=== PATIENT | female | born 1940 | race Caucasian/White ===

== ENCOUNTER 2020-01-29 09:38 | Outpatient (CLI) | payer MEDICARE, OTHER, SELFPAY ==
--- NOTE | 2020-01-29 11:00 | NEURO_ITS ---
Patient Number: [id number] Impression: # Complains of numbness and gait dysfunction. 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 # Needle/EMG exam not requested. # Clinical correlation recommended; Patient has generalized neuropathy involving lower extremities, left more than right, motor as well as sensory. Nerve Conduction Studies Anti Sensory Summary Table Stim Site NR Peak (ms) P-T Amp (?V) Site1 Site2 Delta-P (ms) Dist (cm) Matias (m/s) Left Median Anti Sensory (2-3nd Digit) Wrist 3.6 56.0 Wrist 2-3nd Digit 3.6 14.0 39 Wrist 3.5 58.7 Wrist 2-3nd Digit 3.6 14.0 39 Right Median Anti Sensory (2-3nd Digit) Wrist 3.1 59.7 Wrist 2-3nd Digit 3.1 14.0 45 Wrist 3.5 57.8 Wrist 2-3nd Digit 3.1 14.0 45 Left Radial Anti Sensory (Base 1st Digit) Wrist 2.3 22.7 Wrist Base 1st Digit 2.3 0.0 Right Radial Anti Sensory (Base 1st Digit) Wrist 3.0 24.7 Wrist Base 1st Digit 3.0 0.0 Left Sup Fibular Anti Sensory (Ant Lat Mall) NO RESPONSE 14 cm NR 14 cm Ant Lat Mall 16.0 Right Sup Fibular Anti Sensory (Ant Lat Mall) 14 cm 4.1 4.7 14 cm Ant Lat Mall 4.1 16.0 39 Left Sural Anti Sensory (Lat Mall) Calf 4.5 10.3 Calf Lat Mall 4.5 16.0 36 Right Sural Anti Sensory (Lat Mall) Calf 4.1 19.8 Calf Lat Mall 4.1 16.0 39 Left Ulnar Anti Sensory (5th Digit) Wrist 2.9 25.9 Wrist 5th Digit 2.9 14.0 48 Right Ulnar Anti Sensory (5th Digit) Wrist 2.9 68.1 Wrist 5th Digit 2.9 14.0 48 Motor Summary Table Stim Site NR Onset (ms) O-P Amp (mV) Site1 Site2 Delta-0 (ms) Dist (cm) Matias (m/s) Left Median Motor (Abd Poll Brev) Wrist 3.5 6.6 Elbow Wrist 5.3 27.0 51 Elbow 8.8 5.7 Right Median Motor (Abd Poll Brev) Wrist 3.4 4.9 Elbow Wrist 5.3 28.0 53 Elbow 8.7 1.9 Left Peroneal Motor (Vastus Med) NO RESPONSE Ankle NR Popit NR Right Peroneal Motor (Vastus Med) Ankle 6.9 0.6 Popit Ankle 6.2 34.0 55 Popit 13.1 0.6 Left Tibial Motor (Abd Long Brev) Ankle 5.6 2.0 Knee Ankle 8.2 38.0 46 Knee 13.8 2.6 Right Tibial Motor (Abd Long Brev) Ankle 5.2 4.9 Knee Ankle 7.9 39.0 49 Knee 13.1 4.8 Left Ulnar Motor (Abd Dig Minimi) Wrist 3.3 4.3 A Elbow Wrist 5.9 29.0 49 A Elbow 9.2 3.5 Right Ulnar Motor (Abd Dig Minimi) Wrist 3.2 5.0 A Elbow Wrist 6.5 28.0 43 A Elbow 9.7 2.7 B Elbow Wrist 3.6 18.0 50 B Elbow 6.8 2.5 F Wave Studies NR F-Lat (ms) L-R F-Lat (ms) Left Median (Mrkrs) (Abd Poll Brev) 25.92 1.11 Right Median (Mrkrs) (Abd Poll Brev) 24.81 1.11 Left Peroneal (Mrkrs) (EDB) DISPERSED RESPONSE NR Right Peroneal (Mrkrs) (EDB) 54.15 Left Tibial (Mrkrs) (Abd Hallucis) 52.34 1.56 Right Tibial (Mrkrs) (Abd Hallucis) 53.91 1.56 Left Ulnar (Mrkrs) (Abd Dig Min) 27.19 0.35 Right Ulnar (Mrkrs) (Abd Dig Min) 26.84 0.35 MTDD
== END 2020-01-29 09:39 | disposition home or self-care (01) ==
PROVIDERS: PCP Family Medicine Adolescent Medicine; Visit Provider Family Medicine Adolescent Medicine
DX: G56.03 Carpal tunnel syndrome, bilateral upper limbs (principal); G56.23 Lesion of ulnar nerve, bilateral upper limbs
CPT/HCPCS: 95913

== ENCOUNTER → 2020-08-13 09:32 | Outpatient (CLI) | payer MEDICARE, OTHER, SELFPAY ==
--- NOTE | ~2020-08-13 | XR_ITS ---
EXAMINATION: XR ribs LT 2V w CXR 2V INDICATION: Dyspnea on exertion, left posterior chest wall pain TECHNIQUE: PA and lateral views of the chest and 3 views of the left ribs were obtained. COMPARISON: 09/14/2016 FINDINGS: The lungs are free of acute opacities. There is no pleural effusion or pneumothorax. The ca rdiomediastinal silhouette is normal. There is mild thoracic spondylosis. There is subtle cortical ir regularity in the lateral aspect of the left seventh rib. IMPRESSION: 1. Possible nondisplaced left seventh rib fracture. 2. No acute cardiopulmonary abnormality. Reviewed, dictated and finalized at location A.
== END ==
PROVIDERS: PCP Family Medicine Adolescent Medicine; Visit Provider Family Medicine Adolescent Medicine
DX: R07.89 Other chest pain (principal); R06.00 Dyspnea, unspecified; M47.814 Spondylosis without myelopathy or radiculopathy, thoracic region
CPT/HCPCS: 71046; 71100

== ENCOUNTER → 2020-08-21 12:41 | Outpatient (CLI) | payer MEDICARE, OTHER, SELFPAY ==
--- NOTE | ~2020-08-21 | CT_ITS ---
EXAMINATION: CT diagnostic chest w con DATE: 08/21/2020 13:22 INDICATION: Pathologic fracture of the left seventh rib, left back pain TECHNIQUE: Transaxial computed tomographic images of the chest were obtained after the administration of 75 cc of Omnipaque 350 intravenous contrast. The dose-length product (DLP) was 232.23 mGy-cm. Ite rative reconstruction was used. COMPARISON: None FINDINGS: There is mild dependent atelectasis. No focal airspace opacities are identified. A 4 mm nod ule is present in the lingula. An adjacent small cluster of nodules is seen slightly more medially in the lingula. There is no pleural effusion or pneumothorax. No pathologically enlarged thoracic lymph nodes are identified. The heart size is normal. No displaced rib fracture is identified. No osseous metastases are present. Peripelvic cysts are noted in the kidneys. There is moderate thoracic spondyl osis. IMPRESSION: 1. No osseous metastases or pathologic fracture identified. 2. Clustered nodules in the lingula measuring up to 4 mm, likely infectious or inflammatory. Reviewed, dictated and finalized at location A.
[2020-08-21 13:10] LABS: Estimated Glomerular Filt Rate 60
== END ==
PROVIDERS: PCP Family Medicine Adolescent Medicine; Visit Provider Family Medicine Adolescent Medicine
DX: M84.48XA Pathological fracture, other site, initial encounter for fracture (principal); R91.8 Other nonspecific abnormal finding of lung field
CPT/HCPCS: 71260; Q9967

== ENCOUNTER → 2021-04-02 16:01 | Outpatient (CLI) | payer MEDICARE, OTHER, SELFPAY ==
--- NOTE | ~2021-04-02 | XR_ITS ---
EXAMINATION: XR chest 2V DATE: 04/02/2021 16:17 INDICATION: Dyspnea on exertion. TECHNIQUE: Frontal and lateral views of the chest were obtained. COMPARISON: Chest 2 views 08/13/2020, chest CT 08/21/2020 FINDINGS: The chest demonstrates clear lungs without pneumonia, pleural effusion, or pneumothorax. Th e heart size is normal. IMPRESSION: 1. No acute cardiopulmonary disease. Reviewed, dictated and finalized at location A. NE CONSULTANT
== END ==
PROVIDERS: PCP Family Medicine Adolescent Medicine; Visit Provider Family Medicine Adolescent Medicine
DX: R06.09 Other forms of dyspnea (principal)
CPT/HCPCS: 71046

== ENCOUNTER 2022-07-05 17:43 | Emergency (ER) | payer MEDICARE, OTHER, SELFPAY ==
--- NOTE | ~2022-07-05 | XR_ITS ---
EXAMINATION: XR foot RT min 3V DATE: 07/05/2022 18:40 INDICATION: Right foot needle puncture. TECHNIQUE: 4 views of right foot were obtained. COMPARISON: None. FINDINGS: Bone alignment is normal. No fracture. There is mild osteoarthritis of first metatarsophala ngeal joint and some of the interphalangeal joints. There is an enthesophyte at plantar aspect of rich caneal tuberosity. There is a pin in the soft tissues of the heel. IMPRESSION: 1. Pin in the soft tissues of the heel. Reviewed, dictated and finalized at location A. CARDIOGRAPH TECH
[2022-07-05 18:40] VITALS: BP 173/71; PULSE 78; RESP 14; TEMP 36.5; O2SAT 98
--- NOTE | 2022-07-05 20:14 | ED.LOWEXIN ---
HPI - Extremity Injury (Lower) General Chief Complaint: Extremity Injury, Lower Stated Complaint: stepped on a needle, still in foot Time Seen by Provider: 07/05/22 19:56 History of Present Illness HPI Narrative: 81-year-old female presents for a sewing needle with red in her right heel. Patient states she stepped on the needle while wearing a sock just prior to arrival to the ED. Reports she attempted to remove the needle at home without success. Says the needle was a clean sewing needle. Patient denies chest pain, shortness of breath, bleeding, difficulty with range of motion. She believes her last tetanus shot was greater than 10 years ago. She was not wearing shoes when she stepped on the needle. Related Data Home Medications Medication Instructions Recorded Confirmed vitamin B complex 1 tablet PO DAILY 11/03/21 12/15/21 prednisone 1 mg tablet 0.25 mg PO DAILY 12/15/21 12/15/21 Allergies Allergy/AdvReac Type Severity Reaction Status Date / Time atorvastatin AdvReac Unknown Muscle Pain Verified 03/15/22 10:13 Review of Systems Review of Systems: CONSTITUTIONAL: Denies fever, chills EYES: Denies visual changes, redness, or discharge. ENT: Denies rhinorrhea, congestion, sore throat, or otalgia. CARDIOVASCULAR: Denies chest pain, palpitations, or edema. RESPIRATORY: Denies cough or dyspnea. GASTROINTESTINAL: Denies abdominal pain, nausea, vomiting, or diarrhea. GENITOURINARY: Denies dysuria or hematuria. SKIN: Denies rash or itching. MUSCULOSKELETAL: Denies back pain, joint pain, or myalgia. NEUROLOGIC: Denies headache, numbness, dizziness, or weakness. PSYCHIATRIC: Denies anxiety or depression. [facility] Surgical History Surgical History H/O: hysterectomy Family History Family History Sibling Acute myocardial infarction Heart disease Colon polyp Son Asthma Diabetes mellitus Daughter Breast cancer Mother Cerebrovascular accident Depression Father Heart disease Social History Social History Smoking status: Never smoker Second hand tobacco smoke exposure: Yes Alcohol intake: never Substance use: never Substance use type: does not use Living arrangements: with family Occupation/Education: retired Gender identity (if verbalized by the patient): Female Sexual Orientation (if Verbalized by the Patient): Straight or Heterosexual Spiritual care concerns: No Agree to blood products: Yes Exam Narrative: GENERAL: Well-appearing, well-nourished, and in no acute distress. HEAD: Normocephalic, atraumatic. EYES: PERRLA and EOMI. ENT: Nares clear, no rhinorrhea or epistaxis. Mucous membranes moist. Oropharynx without tonsillar hypertrophy exudate or other lesions. NECK: Supple. No adenopathy or masses. CHEST: Clear to auscultation. No respiratory distress. No wheezes rales or rhonchi HEART: Regular rate and rhythm. No murmur heard. Normal peripheral pulses. ABDOMEN: Soft, nontender, nondistended, normal active bowel sounds. EXTREMITIES: Sewing needle with blue thread protruding from patient's right heel. No surrounding erythema, purulence. No active bleeding. After needle removed, there is a very small puncture hole to the right heel. No bleeding. Patient has full range of motion of her right foot. Sensation intact. DP pulses 2+. SKIN: Warm, dry, no rash. NEURO: No focal deficits. Alert and oriented x3. PSYCH: Normal mood and affect. Course Vital Signs Vital signs: Vital Signs Temperature 97.7 F 07/05/22 18:40 Pulse Rate 78 07/05/22 18:40 Respiratory Rate 14 07/05/22 18:40 Blood Pressure 173/71 H 07/05/22 18:40 Pulse Oximetry 98 07/05/22 18:40 Oxygen Delivery Room Air 07/05/22 18:40 Temperature 97.7 F 07/05/22 18:40 Pulse Rate 78 07/05/22 18:40 Respiratory Rate 1
[2022-07-05 20:31] VITALS: PULSE 68; RESP 16; O2SAT 100
[2022-07-05] MEDS: TETANUS,DIPHTHERIA,AC PERTUSSIS ADULT (0.5 ML) BOOSTRIX IM (20:31)
[2022-07-05 20:36] VITALS: BP 162/72
== END 2022-07-05 20:40 | disposition home or self-care (01) ==
PROVIDERS: Emergency Provider Physician Assistant; PCP Family Medicine Adolescent Medicine
DX: S91.341A Puncture wound with foreign body, right foot, initial encounter (principal); Z23 Encounter for immunization; Z90.710 Acquired absence of both cervix and uterus; W27.3XXA Contact with needle (sewing), initial encounter
CPT/HCPCS: 73630; 90471; 90715; 99283

== ENCOUNTER → 2022-08-23 08:35 | Outpatient (CLI) | payer MEDICARE, OTHER, SELFPAY ==
--- NOTE | ~2022-08-23 | MR_ITS ---
EXAMINATION: MR brain IAC wo con DATE: 08/23/2022 09:24 INDICATION: Headache and dizziness. TECHNIQUE: Magnetic resonance imaging (MRI) of the brain, brainstem, and internal auditory canals was performed without intravenous contrast. COMPARISON: None. FINDINGS: There are scattered areas of nonspecific increased T2-weighted signal intensity in the cere bral white matter, which is within normal limits for the patient's age. There is no intracranial hemo rrhage, acute infarction, or abnormal intracranial mass lesion. The ventricles are normal in size. Th e mastoid air cells are normal. There are likely changes of ocular lens replacement surgeries. The pa ranasal sinuses are clear. IMPRESSION: 1. Normal aging brain. Reviewed, dictated and finalized at location A. IMPRESSION: 1. Normal aging brain.
== END ==
PROVIDERS: PCP Family Medicine Adolescent Medicine; Visit Provider Family Medicine Adolescent Medicine
DX: R42 Dizziness and giddiness (principal); R51.9 Headache, unspecified; H91.8X9 Other specified hearing loss, unspecified ear
CPT/HCPCS: 70551

== ENCOUNTER → 2023-04-18 11:39 | Outpatient (CLI) | payer MEDICARE, OTHER, SELFPAY ==
--- NOTE | ~2023-04-18 | XR_ITS ---
EXAMINATION: XR chest 2V 04/18/2023 11:57 INDICATION: Dyspnea with exertion PROCEDURE: 2 view chest COMPARISON: 04/02/2021 FINDINGS: The lungs are clear. The cardiomediastinal silhouette is within normal limits. There are no pleural effusions. There is no pneumothorax suspected. IMPRESSION: 1: NO ACUTE CARDIOPULMONARY DISEASE. Reviewed, dictated and finalized at location B. T WORKER
== END ==
PROVIDERS: PCP Family Medicine Adolescent Medicine; Visit Provider Family Medicine Adolescent Medicine
DX: R06.09 Other forms of dyspnea (principal)
CPT/HCPCS: 71046

== ENCOUNTER 2023-08-25 10:35 | Outpatient (CLI) | payer MEDICARE, OTHER, SELFPAY ==
--- NOTE | ~2023-08-25 | MR_ITS ---
EXAMINATION: MR shoulder RT wo con DATE: 08/25/2023 11:13 INDICATION: Right shoulder pain with elevation TECHNIQUE: Magnetic resonance imaging (MRI) of the right shoulder was performed without intravenous c ontrast. Sequences included axial PD-weighted FS FSE, coronal oblique PD-weighted FS FSE, coronal obl ique T2-weighted FS FSE, sagittal PD-weighted FS FSE, and sagittal T1-weighted SE. COMPARISON: None. FINDINGS: Coracoacromial arch: The acromion undersurface is curved in morphology (type II) with anterior downsloping and small anter ior subacromial spur. The coracoacromial ligament is normal. Moderate acromioclavicular osteoarthriti s. Rotator cuff: Moderate supraspinatus and mild infraspinatus tendinopathy without discrete tear. Mild tendinopathy w ithout discrete tear at the cephalad aspect of the distal subscapularis tendon. The teres minor tendo n is normal. There is mild fatty atrophy of the supraspinatus muscle belly. Biceps tendon, glenoid labrum and glenohumeral cartilage: Long head of the biceps tendon is normal. There is severe glenohumeral osteoarthritis with extensive full/near full-thickness cartilage loss involving the majority of the glenoid as well as large region of the medial aspect of the humeral head. There is associated mild cortical irregularity with underl baldomero mild edema-like signal change at both sides of the joint space. There appears to been some remod eling along the anteroinferior glenoid. Fluid: Physiologic amount of fluid in the glenohumeral joint and biceps tendon sheath. There is extensive fl uid intensity deep subscapular bursa which extends the cephalad 3 defect in the coracohumeral ligamen t. No loose osteochondral bodies. No abnormal increased fluid signal in the subacromial/subdeltoid bu rsa to suggest bursitis. Bones: Bone alignment is normal. No fracture or pathologic marrow replacing process. IMPRESSION: 1. Severe right glenohumeral osteoarthritis with diffuse degenerative tearing of the glenoid labrum. 2. Moderate supraspinatus and mild infraspinatus and subscapularis tendinopathy without discrete tear . 3. Moderate acromioclavicular osteoarthritis. Reviewed, dictated and finalized at location B. IMPRESSION: 1. Severe right glenohumeral osteoarthritis with diffuse degenerative tearing o f the glenoid labrum. 2. Moderate supraspinatus and mild infraspinatus and subscapularis tendinopathy without discrete tear. 3. Moderate acromioclavicular osteoarthritis.
== END 2023-08-25 10:36 ==
LOC: MICIMG 10:37
PROVIDERS: PCP Family Medicine Adolescent Medicine; Visit Provider Family Medicine Adolescent Medicine
DX: M19.011 Primary osteoarthritis, right shoulder (principal)
CPT/HCPCS: 73221

== ENCOUNTER 2024-03-15 09:23 | Outpatient (CLI) | payer MEDICARE, OTHER, SELFPAY ==
--- NOTE | 2024-03-15 09:44 | ECHO_ITS ---
Patient Info Name: Marika Ronquillo Age: 83 years : 1940 Gender: Female Ht: 62 in Wt: 115 lbs BSA: 1.51 m2 HR: 70 bpm Technical Quality: Good Exam Date: 03/15/2024 9:57 AM Exam Location: Echo Lab Patient Status: Outpatient Admit Date: 03/15/2024 Staff Ordering Physician: Joon Guo MD Coal Deliverer: Latricia Fragoso RDCS Attending Provider: Joon Guo MD Referring Physician: Brant GUO; Exam Type: CA echo doppler color flow Study Info Indications - dyspnea Complete two-dimensional, color flow and Doppler transthoracic echocardiogram is performed. Summary 1. Complete two-dimensional, color flow and Doppler transthoracic echocardiogram is performed. 2. Left ventricular chamber dimension is normal. 3. Left ventricular systolic function is normal, estimated at 60-65%. 4. The left ventricular diastolic function is grade I diastolic dysfunction. 5. E/e' 7 is not elevated. 6. There is mild aortic valve sclerosis. 7. There is mild to moderate aortic valve regurgitation. 8. There is trace mitral valve regurgitation. 9. There is mild tricuspid valve regurgitation. 10. No pulmonary hypertension, estimated pulmonary arterial systolic pressure is 28 mmHg. Left Ventricle E/e' 7 is not elevated. Left ventricular chamber dimension is normal. Left ventricular systolic function is normal, estimated at 60-65%. The left ventricular diastolic function is grade I diastolic dysfunction. Right Ventricle Right ventricular systolic function is normal and with normal TAPSE 2.1 cm. Right ventricular chamber dimension is normal. Left Atria Left atrial chamber dimension is normal. Right Atria Right atrial chamber dimension is normal. Aortic Valve The aortic valve is trileaflet. There is mild aortic valve sclerosis. There is no aortic valve stenosis. There is mild to moderate aortic valve regurgitation. Pulmonic Valve There is no pulmonic regurgitation. Mitral Valve There is no mitral valve stenosis. There is trace mitral valve regurgitation. Tricuspid Valve There is mild tricuspid valve regurgitation. No pulmonary hypertension, estimated pulmonary arterial systolic pressure is 28 mmHg. Pericardium/Pleural There is no pericardial effusion. Inferior Vena Cava Normal inferior vena cava with >50% collapse upon inspiration consistent with normal right atrial pressure, 5 mmHg. Aorta The aortic root size at the sinus of Valsalva is normal. Left Ventricular Outflow Tract Name Value Normal LVOT 2D LVOT Diameter 1.8 cm LVOT Doppler LVOT Peak Gradient 6 mmHg LVOT Mean Gradient 3 mmHg LVOT VTI 23 cm LVOT VTI/AV VTI Ratio 0.7 LVOT Stroke Volume 60 ml LVOT CO 4.6 l/min LVOT CI 3.0 l/min/m2 Mitral Valve Name Value Normal MV Doppler MV Decel Avery 317 cm/s2 MV PHT 51 ms MV Area (PHT) 4.3 cm2 4.0-5.0 MV Regurgitation Doppler MR Peak Gradient 39 mmHg MV Diastolic Function MV E Peak Velocity 56 cm/s MV A Peak Velocity 94 cm/s MV E/A 0.6 MV Decel Time 175 ms MV Annular TDI MV E/e' (Septal) 8.2 <=8.0 MV E/e' (Lateral) 6.3 <=8.0 MV E/e' (Average) 7.3 Tricuspid Valve Name Value Normal TV Regurgitation Doppler TR Peak Velocity 238 cm/s TR Peak Gradient 18 mmHg Estimated PAP/RSVP RA Pressure 5 mmHg <=5 PA Systolic Pressure 28 mmHg <36 RV Systolic Pressure 28 mmHg <36 Aortic Valve Name Value Normal AV Doppler AV Peak Velocity 139 cm/s AV Peak Gradient 8 mmHg AV Mean Gradient 5 mmHg AV VTI 32 cm AV Area (Cont Eq VTI) 1.9 cm2 >=3.0 AV Area (Cont Eq Matias) 2.2 cm2 AV Regurgitation 2D LVOT Area 2.6 cm2 AV Regurgitation Doppler AR Decel Time 1,496 ms AR Decel Avery 307 cm/s2 AR PHT 434 ms Ventricles Name Value Normal LV Dimensions 2D/MM IVS Diastolic Thickness (2D) 0.9 cm 0.6-1.0 LVID Diastole (2D) 4.1 cm 3.8-5.2 LVIW Diastolic Thickness (2D) 0.9 cm 0.6-0.9 LVID Systole (2D) 2.7 cm 2.2-3.5 LVOT Diameter 1.8 cm LV Mass (2D Cubed) 119.87 g 67.00-162.00 LV Mass Index (2D Cubed) 79 g/m2 43-95 Relative Wall Thickness (2D) 0.46 LV Fractional Shortening/Ejection Fraction 2D/MM LV Fractional Shortening (2D) 34 % 27-45 LV EF (2D Teicholz) 63 % 54-74 LV Diastolic Volume (4C MOD) 56 ml LV EF (4C MOD) 61 % LV Diastolic Volume (2C MOD) 55 ml LV EF (2C MOD) 63 % LV Diastolic Volume (BP MOD) 57 ml 46-106 LV Diastolic Volume Index (BP MOD) 38 ml/m2 29-61 LV Systolic Volume (BP MOD) 21 ml 14-42 LV Systolic Volume Index (BP MOD) 14 ml/m2 8-24 LV EF (BP MOD) 62 % 54-74 LV Diastolic Length (4C) 6.8 cm LV Systolic Length (4C) 5.1 cm LV Stroke Volume (4C MOD) 34 ml Atria Name Value Normal LA Dimensions LA Volume (4C A-L) 20 ml LA Volume (BP A-L) 20 ml RA Dimensions RA Area (4C) 6.5 cm2 <=18.0 Report Signatures
== END 2024-03-15 09:24 | disposition home or self-care (01) ==
LOC: ANHCARD 09:24
PROVIDERS: PCP Family Medicine Adolescent Medicine; Visit Provider Family Medicine Adolescent Medicine
DX: I36.1 Nonrheumatic tricuspid (valve) insufficiency (principal); I34.0 Nonrheumatic mitral (valve) insufficiency; I35.1 Nonrheumatic aortic (valve) insufficiency
CPT/HCPCS: 93306

== ENCOUNTER 2024-08-18 09:54 | Emergency (ER) | payer MEDICARE, OTHER, SELFPAY ==
--- NOTE | ~2024-08-18 | CT_ITS ---
EXAMINATION: CT abdomen pelvis w con DATE: 08/18/2024 11:21 INDICATION: Abdominal pain TECHNIQUE: Computed tomography (CT) of the abdomen and pelvis was performed with 100 mL Omnipaque-350 intravenous contrast. Automated exposure control and iterative reconstruction technique were employe d. The dose-length product was 207.44 mGy-cm. COMPARISON: 08/06/2018 FINDINGS: Mild dependent atelectasis in bilateral lower lobes. Heart size is normal. Atherosclerotic coronary a rtery calcification. No pericardial or pleural effusion. Small sliding-type hiatal hernia. Phrygian c ap versus focal adenomyomatosis at the tip of the fundus of the otherwise normal gallbladder. Liver, spleen, pancreas and bilateral adrenal glands are normal. Multiple bilateral renal parapelvic cysts a t a few additional proximal cysts the largest on the left measuring 1.7 cm. There are a few scattered diverticula along the descending and sigmoid colon without adjacent inflammatory stranding to sugges t diverticulitis. Small bowel and appendix are normal. Bladder is normal. The uterus is not identifie d and has likely been surgically resected. Mild lumbar levocurvature with severe lumbar and lower tho racic spondylosis. IMPRESSION: 1. No acute intra-abdominal/pelvic process. 2. Small sliding-type hiatal hernia. Reviewed, dictated and finalized at location A.
--- OUTSIDE RECORDS SUMMARY | 2024-08-18 09:56 | XMS_ITS | Data Portability ---
Author Organization [place] [facility] [employer], Main Office Address [address] [place] [address] Care Team Providers Care Java Flex Developer Name Role Phone EVIE JEFFERSON Primary Care Provider EVIE JEFFERSON Referring Provider [phone] Assessment Encounter Date Assessment Date Assessment LastModified by Organization Details LastModified Time 09/10/2022 09/10/2022 The patient has left knee pain due to primary osteoarthritis. We talked about treatment options today in detail she wanted proceed with cortisone therefore under sterile conditions I injected the patient's left knee joint in the office today with 4 cc of 0.5% ropivacaine and 20 mg of Kenalog. Patient tolerated procedure well. I will see her back as needed she voiced understanding agrees above plan she will call for any further problems difficulties or questions. She will continue with her exercise regimen with low-impact exercise and other conservative measures including pnri-mwi-lmioouu anti-inflammator ies and ice as needed. [email or web address] Not available 09/10/2022 14:12:23 12/30/2022 12/30/2022 Patient returns trochanteric pain right. She is tender to palpation has pain to manipulation. She has good motion of her hip but quite tender laterally strength is good reflexes symmetric. She walks with an antalgic gait. I recommended injection proceed with 20 mg Kenalog 4 cc 1% lidocaine. For prescription drug management will try prednisone taper for pain and inflammation. I will see her back in a month for follow-up discussed. [email or web address] Not available 12/30/2022 11:56:16 Plan of Treatment Reminders Order Date Submit Date Provider Last Modified By Organization Details Last Modified Time Details Appointments None recorded. Lab None recorded. Referral None recorded. Procedures injection/a spiration joint/bursa (PROC) - in office procedure, administere d by provider 2022 023 [email or web address] In-Office Order, Internal Use Only DO Not Attach Compendium DO Not Attach Compendium, Do Not Delete/merge, [id number] 11:29:51 injection/a spiration joint/bursa (PROC) - in office procedure, administere d by provider 2022 023 [email or web address] In-Office Order, Internal Use Only DO Not Attach Compendium DO Not Attach Compendium, Do Not Delete/merge, [id number] 3 14:03:08 Surgeries None recorded. Imaging XR, hip + pelvis, unilateral 2022 023 [email or web address] [facility] [place], [address] [facility] [address], [place], [address], 3 13:21:20 Medication Orders Kenalog 10 mg/mL suspension for injection [email or web address] [facility] [address] [facility], [address], [place], [address], 3 11:47:24 ropivacaine (PF) 5 mg/mL (0.5 %) injection solution [address] [facility], [address], [place], [address], 3 11:47:24 prednisone 10 mg tablets in a dose pack [address] [facility], [address], [place], [address], 3 11:47:24 Kenalog 10 mg/mL suspension for injection 2022 023 [email or web address] [facility] [place] [facility], [address], [place], [address], 3 14:04:48 ropivacaine (PF) 5 mg/mL (0.5 %) injection solution 2022 023 [email or web address] [facility], [address], [place], [address], 14:04:48 Patient TargetsNo targets recorded. Patient InstructionsNo instructions recorded. Reason for Referral None Reported. Results Created Date Observation Date Name Description Value Unit Range Abnormal Flag Note LastModifiedBy Organization Detail LastModifiedTime 05/05/20 21 XR, knee, 3 view No observ ation record ed. [id number] [facility] [place] [address], [place], [address], 07/14/2022 19:29:14 06/24/19 23 XR, knee, 3 view No observ ation record ed. [id number] [facility] [place] [address], [place], [address], 07/14/2022 19:29:14 12/31/19 23 XR, hip + pelvi s, unila teral No observ ation record ed. [email or web address] [facility] [place] [address], [place], [address], 12/30/2022 11:57:42 Result Notes None recorded. Problems Name Problem SNOMED Code Status Onset Date Resolution Date Notes Provider Name and Address Organization Details Recorded Time Disorder of shoulder 717269069 Active Not Available [facility] 3 19:28:33 Localized, primary osteoarthr itis of the shoulder region 594665790 Active Not Available [facility] 3 19:28:33 Tear of medial meniscus of knee 143663991 Active 2020 Not Available [facility] 3 19:28:33 Osteoarthr itis of left knee joint 9913469721442 09 Active 2022 Not Available [facility] 3 19:28:33 Pain of left knee joint 6416147111210 07 Active 2022 RORY Fajardo, [facility] 3 14:01:50 Pain in right hip joint 4887956084739 02 Active 2022 Karishma Buenrostro tommie, [facility] 3 10:41:03 Trochanter ic bursitis of right hip 2344996550143 00 Active 2022 Elijah Lopes MD [address] [facility], [facility] [address], [place], [address] , [facility] 3 11:56:24 Problem Notes None recorded. Procedures Surgical History Date Name Laterality Status Provider Name and Address Organization Details Recorded Time Ortho - Cortisone Injection completed Elijah Lopes MD [address], [facility] [address], [place], [address], [facility] 12/30/2022 11:55:38 Imaging Results Imaging Date Name Status LastModified by Organiz [facility] Details LastModified Time 06/24/2022 XR, knee, 3 view completed [id number] [facility] [place] [address], [place], [address], 07/14/2022 19:29:14 05/05/2021 XR, knee, 3 view completed [id number] [facility] [place] [address], [place], [address], 07/14/2022 19:29:14 12/30/2022 XR, hip + pelvis, unilateral completed [email or web address] [facility] [place] [address], [address], 12/30/2022 11:57:42 Procedure Notes None recorded. Medical Equipment None Reported. Medications Name Sig Start Date Stop Date Status Note LastModified by Organization Details LastModified Time furosemide 40 mg tablet TAKE 1 TABLET BY MOUTH ONCE DAILY IN THE MORNING active Not Available Not Available No t Available prednisone 10 mg tablet TAKE 1 TABLET BY MOUTH THREE TIMES DAILY FOR 3 DAYS THEN 1 TWICE DAILY FOR 2 DAYS THEN 1 ONCE DAILY FOR 1 DAY active Not Available Not Available No t Available doxycycline hyclate 100 mg capsule TAKE 1 CAPSULE BY MOUTH TWICE DAILY 06/24 completed Not Available Not Available Not Available bupivacaine HCl 0.5 % (5 mg/mL) injection solution Take 40 mL by injection route. active Not Available Not Available No t Available penicillin V potassium 500 mg tablet TAKE 1 TABLET BY MOUTH EVERY 6 HOURS UNTIL GONE 06/24 completed Not Available Not Available Not Available tramadol 50 mg tablet TAKE 1 TABLET BY MOUTH EVERY 6 HOURS NEEDED active Not Available Not Available No t Available prednisone 10 mg tablets in a dose pack Take 1 tab by mouth, 3 times a day for 3 daysTake 1 tab by mouth 2 times a day for 2 daysTake 1 tab by mouth once a day for 1 day 2022 active Not Available Not Available Not Avai lable Kenalog 10 mg/mL suspension for injection Take 20 mg by injection route. [address] [facility]: [phone] Not Available Not Available Not Available meclizine 25 mg tablet 05/05 completed Not Available Not Available Not Available cephalexin 500 mg capsule TAKE 1 CAPSULE BY MOUTH EVERY 8 HOURS active Not Available Not Available No t Available gabapentin 300 mg capsule TAKE 2 CAPSULES BY MOUTH IN THE MORNING AND 1 CAPSULE AT NOON AND 2 CAPSULRES IN THE EVENING active Not Available Not Available No t Available omeprazole 20 mg capsule,del ayed release TAKE 1 CAPSULE BY MOUTH ONCE DAILY active Not Available Not Available No t Available furosemide 20 mg tablet 05/05 completed Not Available Not Available Not Available lorazepam 1 mg tablet TAKE 2 TABLETS BY MOUTH ONCE 1 HOUR BEFORE MRI active Not Available Not Available No t Available levofloxaci n 500 mg tablet 06/24 completed Not Available Not Available Not Available amoxicillin 875 mg-potassiu m clavulanate 125 mg tablet TAKE 1 TABLET BY MOUTH EVERY 12 HOURS FOR 10 DAYS 06/24 completed Not Available Not Available Not Available ezetimibe 10 mg tablet TAKE 1 TABLET BY MOUTH ONCE DAILY active Not Available Not Available No t Available ropivacaine (PF) 5 mg/mL (0.5 %) injection solution Take 20 mg by injection route. [address] [facility] [phone] -[phone] Not Available Not Available Not Available BinaxNOW COVID-19 Ag Self Test kit Use as Directed on the Package 06/24 completed Not Available Not Available Not Available Vitals Date Recorded Body mass index (BMI) Body height Pain severity - 0-10 verbal numeric rating [Score] - Reported Body weight Provider Name and Address Organization Details Last Updated DateTime 05/05/2021 22.5 kg/m2 157.48 cm 4 08802.86 g Not Available [facility] 07/14/2022 19:28:29 Date Recorded Body mass index (BMI) Body height Body weight Provider Name and Address Organization Details Last Updated DateTime 06/24/2022 21.9 kg/m2 157.48 cm 51759.08 g Not Available [facility] 07/14/2022 19:28:29 Date Recorded Body height Body mass index (BMI) Body weight Provider Name and Address Organization Details Last Updated DateTime 09/10/2022 157.48 cm 22.3 kg/m2 57539.27 g Savi Brooke [facility] 09/10/2022 14:01:23 Date Recorded Body height Body mass index (BMI) Body weight Provider Name and Address Organization Details Last Updated DateTime 12/30/2022 154.94 cm 22.3 kg/m2 66641.9 g Karishma Buenrostro [facility] 12/30/2022 10:40:39 Social History Question Answer Notes LastModified by Organizat ion Details LastModified Time Tobacco Smoking Status Never Smoker Not Available [facility] 07/14/2022 19:27:55 What Is Your Level Of Alcohol Consumption? None [id number] Information not available 07/14/2022 What Was The Date Of Your Most Recent Tobacco Screening? 05/05/2021 [id number] 26 Information not available 07/14/2022 Sex: Unknown Functional Status None recorded. Mental Status None recorded. Family History Relationship Description Onset Age of this Age Resolved Age Notes LastModified by Organization Details LastModified Time Father Heart disease [id number] Not available 07/14/2022 19:27:58 Brother Heart disease [id number].009 [id number] Not available 07/14/2022 19:27:58 Son Diabetes mellitus [id number] Not available 07/14/2022 19:27:58 Medical History Condition Response ARTHRITIS Y Gynecological HistoryNo gynecological history recorded. Obstetrics History GPAL:G 0 P 0 0 0 0 Past Encounters Encounter ID Performer Location Encounter Start Date Encounter Closed Date Diagnosis/Indication Diagnosis SNOMED-CT Code Diagnosis ICD10 Code Diagnosis Note [id number] [facility] [place] [address] [place] [address] 05/05/2021 00:00:00 05/06/2021 07:52:15 [id number] [facility] [place] [address] [place] [address] 06/24/2022 00:00:00 06/24/2022 13:15:30 [id number] ABILIO Acuña [facility] [place] [address] [place] [address] 09/10/2022 13:54:39 09/10/2022 14:12:58 Osteoarthritis of left knee joint 3195808183 12903 M17.12 Pain of le ft knee joint 0942885769 69901 M25.562 [id number] Elijah Lopes MD [facility] [place] [address] [place] [address] 12/30/2022 10:38:13 12/30/2022 13:21:19 Pain in right hip joint 9274018091 63879 M25.551 Trochanter ic bursitis of right hip 0023505588 07503 M70.61 Health Concerns Section Related Observation LastModified by Organization Detai ls LastModified Time None Recorded Concern Status LastModified by Organization Details LastModified Time None Recorded Advance Directives Directive None Recorded Payers Encounter Date Sequence Insurance Name Policy Number Policy Soares Covered Member ID Soares Member ID Guarantor Name 09/10/2022 1 [place] Marika Ronquillo [id number] Marika Ronquillo 09/10/2022 2 [employer] (MEDICARE SUPPLEMENT) Marika Ronquillo [id number] Marika Ronquillo 12/30/2022 1 [place] Marika Phillipswski [id number] Marika Shima 12/30/2022 2 [employer] (MEDICARE SUPPLEMENT) Marika Payan Shima [id number] Marika Shima Notes Date Note Type Note Provider Name and Address Organization Details Recorded Time 05/05/2021 text/html KneeReported bypatient.Location:le ft; medial Quality:aching; throbbing; sharp; deep; occasional Severity:moderate Duration:continuous since onset Timing:acute; abrupt Context:cannot identify Alleviating Factors:sitting; lying down; rest; elevation; exercise; stretching Aggravating Factors:walking; lifting; carrying; twisting; bending/squatting Associated Symptoms:no weakness; no numbness; no tingling; no redness; no ecchymosis; no catching/locking; no instability; no radiation down leg; no drainage; no fever; no chills; no weight loss; no change in bowel/bladder habits;swelling;warmt h;popping/clicking;bu ckling;grinding Not Available [facility] 05/06/2021 07:52:15 09/10/2022 text/html Patient returns complaining left knee pain she has been seen for this previously she was last here about 3 months ago she did very well with previous cortisone injection last time she was here for was a recheck from a previous cortisone injection that gave her good relief for 6-9 months. She states recently her left knee has started to flare up again she has been active trying to exercise with an exercise bike etc.. She states that lately her left knee has been a little bit puffy and aching denies any new trauma or injury no erythema heat no significant effusion no signs of infection. She comes in today requesting repeat cortisone injection left knee. Previous x-rays show mild to moderate primary osteoarthritis tricompartmental in nature. ABILIO Acuña [address] [place] [address], [facility] [address], [place], [address], [facility] 09/10/2022 14:12:34 12/30/2022 text/html Patient presents hip pain right. She is tender over the right hip over the trochanteric region. She had an injury to it since that time has had pain. She she walks with an antalgic gait and limps. Elijah Lopes MD [address] [place] [address], [place], [address], [place] [facility] 12/30/2022 11:57:53 OBGyn Episode No OBEpisode recorded.
--- OUTSIDE RECORDS SUMMARY | 2024-08-18 09:56 | XMS_ITS | Continuity of Care Document ---
Author Organization [facility] Address [address] [place] [address] Phone Care Team Providers Care Generator Switchboard Operator Name Role Phone Collin Holden Unavailable Unavailable Procedures Procedure Date Post-op Follow-up Visit Refraction Post-op Follow-up Visit Remove Cataract, Insert Lens PreOp Assessment Performed Post-op Follow-up Visit [facility]Professional Post-op Follow-up Visit Remove Cataract, Insert Lens PreOp Assessment Performed Eye Exam & Treatment [facility] Office/outpatient Visit, Est No Script Office/outpatient Visit, New Script Printed/Phoned Pt Requ Or Pharm N ot Availab Advance Directives Directive Yes / No Effective Date File Name No Information Encounters Encounter Description Practice Location Reason(s) For Visit Diagnoses Date Provider Providers Copied on Encounter [facility], [address] [place] [address] [address], [place], [place], [id number], [place] tel:[phone] [facility] No Information 0 Adina Polanco. [address] , [address], [place], [address], [place]. tel:[phone] [facility], [address], [place], [place], [id number], [place] tel:[phone] [facility] No Information Apr-2 8-201 0 Adina Polanco. [address] [facility] , [address], [place], [place], [facility], [place]. tel:[phone] [facility], [address], [place], [place], [id number], [place] tel:[phone] [facility] No Information Aug-2 7-201 0 Adina Polanco. [address] [facility] , [address], [place], [place], [facility], [place]. tel:[phone] [facility], [address], [place], [place], [id number], [place] tel:[phone] [facility] No Information Aug-1 9-201 0 Adina Polanco. [address] [facility] , [address], [place], [place], [facility], [place]. tel:[phone] Referring Provider: Collin Payan, [address] [place], [place] [address], [place], [place], [facility]. tel:[phone] [facility], [address], [place], [place], [address], [place] tel:[phone] [facility] No Information Mar-3 1-201 0 Adina Polanco. [facility] , [address], [place], [place], [facility], [place]. tel:[phone] [facility], [address], [place], [place], [address], [place] tel:[phone] [facility] No Information Mar-3 0-201 0 Adina Polanco. [facility] , [address], [place], [facility], [place]. tel:[phone] [facility], [address], [place], [place], [id number], [place] tel:[phone] [facility] No Information 2-201 0 Adina Polanco. [address] [facility] , [address], [place], [address], [place]. tel:[phone] Referring Provider: Collin Payan, [address] [facility] [address], [place], [facility]. tel:[phone] [place]pat [place] Visit, [facility] [place] [address], [place], [place], [id number], [place] tel:[phone] [facility] No Information 4-200 9 Adina Polanco. [address] [facility] [address], [address], [place], [facility], [place]. tel:[phone] Office/outpat ient Visit, [facility], [address], [place], [place], [address], [place] tel:[phone] [facility] No Information 0-200 9 Adina Polanco. [facility] [address], [address], [place], [facility], [place]. tel:[phone] Family History Family Member Type Diagnosis Age At Onset No Information Payers Payer name Insurance type Covered republican ID Authoriza tishadi(s) [place] [id number] [facility] [id number] Social History Type Description Quantity Date Captured Comments Sex Female Smoking Status No Information Chief Complaint And Reason For Visit No Information Reason For Referral Reason For Referral No Information History Of Present Illness Encounter Date Complaint History Of Prese nt Illness No Information Functional Status Date Functional Assessmen t No Information Instructions Date Instruction Additional Infor mation No Information Assessments Type Assessment Date No Information Patient Care Teams Name Effective Dates (start - stop) Status Members No Information
--- OUTSIDE RECORDS SUMMARY | 2024-08-18 09:56 | XMS_ITS | Clinical Summary ---
Author Organization [address] Address [address] [place] [address] Care Team Providers Care Rnp Name Role Phone Joon Guo MD Primary Care Prov ider Allergies No known active allergies Medications ezetimibe (ZETIA) 10 mg tablet Take 10 mg by mouth daily 03/30/2021 Active aspirin 81 mg enteric coated tablet Take 81 mg by mouth daily Active docusate sodium (COLACE) 100 mg capsule Take 100 mg by mouth 2 (two) times a day 02/15/2012 Active estradioL (ESTRACE) 1 mg tablet Take 1 mg by mouth daily Active furosemide (LASIX) 40 mg tablet 03/02/2021 Active omeprazole (PriLOSEC) 20 mg capsule Take 20 mg by mouth daily 03/30/2021 Active levoFLOXacin (LEVAQUIN) 500 mg tablet TAKE 1 TABLET BY MOUTH ONCE DAILY FOR 10 DAYS 04/21/2021 Active nadoloL (CORGARD) 20 mg tablet Take 20 mg by mouth daily Active rosuvastatin (CRESTOR) 20 mg tablet Take 20 mg by mouth daily Active Active Problems No known active problems Social History Tobacco Use Types Packs/Day Years Used Date Smoking Tobacco: Never Assessed Comments Unknown Sex and Gender Information Value Date Recorded Sex Assigned at Not on file Legal Sex Female 8:22 AM [employer] Gender Identity Not on file Sexual Orientation Not on file Obstetrics History Last Filed Vital Signs Vital Sign Reading Time Taken Comments Blood Pressure 147/77 05/13/2021 1:09 PM [employer] Pulse 72 05/13/2021 1:09 PM [employer] Temperature 36.3 C (97.3 F) 05/15/2021 2:28 PM [employer] Respiratory Rate 16 05/13/2021 1:09 PM [employer] Oxygen Saturation 96% 05/13/2021 1:09 PM [employer] Inhaled Oxygen Concentration - - Weight 56.2 kg (124 lb) 05/13/2021 1:09 PM [employer] Height 157.5 cm (5' 2 ) 05/13/2021 1:09 PM [employer] Body Mass Index 22.68 05/13/2021 1:09 PM [employer] Plan of Treatment Not on file Insurance MEDICARE [facility] MEDICARE [facility] [place] [address] Care Teams Rnp Relationship Specialty Start Date End Date Joon Guo MD [address] [place] [address] PCP - General Family Medicine 05/13/21
--- OUTSIDE RECORDS SUMMARY | 2024-08-18 09:56 | XMS_ITS | Clinical Summary ---
Author Organization [facility] Address [address] [place] [address] Care Team Providers Care Supervisor Respiratory Name Role Phone Joon Guo MD Primary Care Provider + Source Comments [facility],non-owned Affiliates and Associated Physician Practices is amultiple site organization consisting of ambulatory clinics and hospital sitesin [place], [place], [place] and [place]. This disclosure is being madepursuant to the Care Everywhere program and may not contain all information available regarding this patient. Last updated 18.[facility] Allergies No known active allergies Medications * Be aware that medications may not be up to date on this document. Alwaysverify current medications with the patient. Medication Sig Dispensed Refills Start Date End Date Status rosuvastatin (CRESTOR) 20 MG tablet Take 20 mg by mouth once daily. Active aspirin EC (ECOTRIN) 81 MG tablet Take 81 mg by mouth once daily. Active nadolol (CORGARD) 20 MG tablet Take 20 mg by mouth once daily. Active estradiol (ESTRACE) 1 MG tablet Take 1 mg by mouth once daily. Active hydrocodone-acetaminoph en (NORCO) 5-325 MG tablet Take 1 Tab by mouth every 4 hours as needed. 20 Tab 0 02/15/2012 Active docusate sodium (COLACE) 100 MG capsule Take 1 Cap by mouth 2 times daily. 60 Cap 2 02/15/2012 Active Immunizations Name Administration Dates Next Due INFLUENZA VACCINE 02/15/2012 Family History Medical History Relation Name Comments Heart Disease Brother Diabetes Child Heart Disease Father Depression Mother Relation Name Status Comments Brother Child Father Mother Social History Tobacco Use Types Packs/Day Years Used Date Smoking Tobacco: Never Smokeless Tobacco: Never Alcohol Use Standard Drinks/Week Comments No 0 (1 standard drink = 0.6 oz pur e alcohol) Sex and Gender Information Value Date Recorded Sex Assigned at Not on file Gender Identity Not on file Sexual Orientation Not on file Last Filed Vital Signs Vital Sign Reading Time Taken Comments Blood Pressure 160/70 12/01/2012 12:41 PM CDT Pulse 64 02/15/2012 7:49 AM CDT Temperature 37 C (98.6 F) 02/15/2012 7:49 AM CDT Respiratory Rate 20 02/15/2012 7:49 AM CDT Oxygen Saturation 96% 02/15/2012 7:49 AM CDT Inhaled Oxygen Concentration - - Weight 59 kg (130 lb) 12/01/2012 12:41 PM CDT Height 157.5 cm (5' 2 ) 02/14/2012 7:39 AM CDT Body Mass Index 23.78 02/14/2012 7:39 AM CDT Plan of Treatment Health Maintenance Due Date Last Done Comments BONE DENSITY TESTING 1940 DTAP/TDAP/TD VACCINES (1 - Tdap) 08/26/1958 PNEUMOCOCCAL VACCINE 50+ (1 of 1 - PCV) 08/26/1989 ZOSTER VACCINE (1 of 2) 08/26/1989 Respiratory Syncytial Virus (RSV) Vaccine Pt: or over 60 yrs (1 - 1-dose 75+ series) 08/26/2014 COVID-19 VACCINE ( - 2023-2 5 season) 2024 DEPRESSION SCREENING 05/16/2024 INFLUENZA VACCINE (Season Ended) 2025 02/15/20 12 HEPATITIS B VACCINE Aged Out No longe r eligible based on patient's age to complete this topic HIB VACCINE Aged Out No longer eligi ble based on patient's age to complete this topic HPV VACCINE Aged Out No longer eligi ble based on patient's age to complete this topic MENINGOCOCCAL (Group B) VACC INE SHARED DECISION-MAKING Aged Out No longer eligibl e based on patient's age to complete this topic MENINGOCOCCAL GROUPS A/C/Y/W VACCINE Aged Out No longer eligible b ased on patient's age to complete this topic Advance Directives Documents on File Type Date Recorded Patient Risk Developer Expl anation Adv Directive/Living Will/POA 02/17/2012 1:15 PM * FULL RESUSCITATION (Latest Code Status on File) Date Activated Date Inactivated Comments 02/14/2012 12:31 PM 02/15/2012 10:47 AM Care Teams Supervisor Respiratory Relationship Specialty Start Date End Date Joon Guo MD [address] [place] [id number] PCP - General 02/07/12
--- OUTSIDE RECORDS SUMMARY | 2024-08-18 09:56 | XMS_ITS | Referral Summary ---
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 Gender Identity Not on file Sexual Orientation Not on file Last Filed Vital Signs Vital Sign Reading Time Taken Comments Blood Pressure 147/77 05/13/2021 1:09 PM TRIMMING MACHINE OPERATOR Pulse 72 05/13/2021 1:09 PM TRIMMING MACHINE OPERATOR Temperature 36.3 C (97.3 F) 05/15/2021 2:28 PM TRIMMING MACHINE OPERATOR Respiratory Rate 16 05/13/2021 1:09 PM TRIMMING MACHINE OPERATOR Oxygen Saturation 96% 05/13/2021 1:09 PM TRIMMING MACHINE OPERATOR Inhaled Oxygen Concentration - - Weight 56.2 kg (124 lb) 05/13/2021 1:09 PM TRIMMING MACHINE OPERATOR Height 157.5 cm (5' 2 ) 05/13/2021 1:09 PM TRIMMING MACHINE OPERATOR Body Mass Index 22.68 05/13/2021 1:09 PM TRIMMING MACHINE OPERATOR Plan of Treatment Not on file Insurance [facility] MEDICARE [facility] [place] [address] Care Teams Auto Transport Driver Relationship Specialty Start Date End Date Joon Guo MD [address] [place] [address] PCP - General Family Medicine 05/13/21
[2024-08-18 09:58] VITALS: BP 157/81; PULSE 90; RESP 33; TEMP 36.3; O2SAT 100
[2024-08-18 10:07] VITALS: BP 135/68; BP 139/84; PULSE 103; PULSE 87; RESP 18; O2SAT 98
[2024-08-18 10:08] VITALS: BP 139/84; BP 144/85; PULSE 110; PULSE 99; RESP 29; O2SAT 100
--- NOTE | 2024-08-18 10:09 | ED.NAVMDI ---
HPI - Nausea/Vomiting/Diarrhea General Chief complaint: Nausea/Vomiting/Diarrhea Stated complaint: DIARRHEA X1WK Time Seen by Provider: 08/18/24 10:08 Source: patient Mode of arrival: ambulatory Limitations: no limitations History of Present Illness HPI Narrative: 83 years old white female came from home with her family complaining of diarrhea for the last 7 days 5-7 episodes a day, watery diarrhea, lately generalized abdominal pain. Patient denies any fever or chills or vomiting. History of hyperlipidemia, no abdominal surgery, does not smoke or drink or use drugs. No recent antibiotic for the last 6 weeks. Patient denies sick contact. Patient reports been feeling dizzy, unable to stand up the last 24 hours associated with nausea Related Data Home Medications ?Medication ?Instructions ?Recorded ?Confirmed ?Last Taken ?Type vitamin B complex 1 tablet PO DAILY 11/03/21 08/18/24 08/17/24 History multivitamin 1 tablet PO DAILY 07/05/23 08/18/24 08/17/24 History zinc acetate 50 mg (zinc) capsule 50 mg PO DAILY 07/05/23 08/18/24 08/17/24 History (Galzin) alpha lipoic acid 200 mg capsule 600 mg PO DAILY 05/31/24 08/18/24 08/17/24 History omega 5-sxv-cqq-fish oil 60 mg-90 1 cap PO DAILY 06/28/24 08/18/24 08/18/24 History mg-500 mg capsule (Fish Oil) Allergies Allergy/AdvReac Type Severity Reaction Status Date / Time atorvastatin AdvReac Unknown Muscle Pain Verified 08/18/24 10:04 Review of Systems Review of Systems: All systems reviewed & are unremarkable except as noted in HPI and below PMFSH Surgical History Surgical History H/O: hysterectomy Family History Family History Sibling Acute myocardial infarction Heart disease Colon polyp Son Asthma Diabetes mellitus Daughter Breast cancer Mother Cerebrovascular accident Depression Father Heart disease Social History Social History Smoking status: Never smoker Second hand tobacco smoke exposure: Yes Alcohol intake: never Substance use: never Substance use type: does not use Current Housing: Decline to Answer Concerned About Future Housing: Decline to Answer Difficulty Paying Gas/Electric Bills: Decline to Answer Difficulty Paying for Meds: Decline to Answer Currently Unemployed: Decline to Answer Education: Decline to Answer Difficulty w/ Childcare or Family Care: Decline to Answer Living arrangements: with family Occupation/Education: retired Gender identity (if verbalized by the patient): Female Sexual Orientation (if Verbalized by the Patient): Straight or Heterosexual Spiritual care concerns: No Agree to blood products: Yes Exam Narrative: General appearance: Well-developed, well-nourished Skin: Normal color Head: Normocephalic, nontraumatic Eyes: Clear conjunctiva ENT: Oropharynx normal, ears normal, nose normal Neck: Supple, nontender Chest and respiratory: Airway patent, no respiratory distress, no accessory muscle use Heart: Regular rate/rhythm Abdomen: Soft, diffuse abdominal tenderness, no organomegaly, quiet bowel sounds Vascular: Normal peripheral pulses, normal capillary refill. Musculoskeletal: Normal range of motion, nontender back Neurologic: Alert and oriented ?3, ACOUSTICAL INSTALLER is normal as tested, no gross motor deficit Course Vital Signs Vital signs: Vital Signs Temperature 36.3 C L 08/18/24 09:58 Pulse Rate 90 08/18/24 09:58 Respiratory Rate 33 H 08/18/24 09:58 Blood Pressure 157/81 H 08/18/24 09:58 Pulse Oximetry 100 08/18/24 09:58 Oxygen Delivery Room Air 08/18/24 09:58 Temperature 36.3 C L 08/18/24 09:58 Pulse Rate 87 08/18/24 11:08 Respiratory Rate 18 08/18/24 11:08 Blood Pressure 143/67 H 08/18/24 11:08 Pulse Oximetry 98 08/18/24 11:08 Oxygen Delivery Room Air 08/18/24 09:58 MDM - Nausea/Vomiting/Diarrhea MDM Narrative Medical decision making narrative: Patient came with diarrhea for 7 days Vital signs showing respiratory rate 33 otherwise within normal limit Physical examination showed slight diffuse abdominal pain otherwise insignificant Differential diagnosis include dehydration, electrolyte imbalance, viral gastroenteritis, C diff, intra-abdominal malignancy Blood workup today includes CBC, CMP, lipase showed WBC 4.1 BUN 23, creatinine 1.3, Urinalysis showed no evidence of infection CT abdomen and pelvis with IV contrast showed Diagnosis: Acute diarrhea Encourage fluid intake, [id number] Imodium, follow-up with new order clerk for further evaluation if no improvement in 7 days. The pt was discharged to home.the pt,s condition upon discharge was fair,education was provided to the pt in reference to the final impression,discharge study results,treatment,prognosis and need for follow up . Differential Diagnosis Differential diagnosis: Likely other (As above) Medical Records Attestation: I reviewed the patient's medical records. Lab Data Attestation: I reviewed the patient's lab results. 08/18/24 10:12 08/18/24 10:12 Labs: Lab Results 08/18/24 Range/Units 10:12 WBC 4.1 L (4.5-10.0) K/mm3 RBC 4.26 (4.2-5.4) M/mm3 Hgb 12.1 (12.0-15.0) g/dL Hct 38.7 (37.0-47.0) % MCV 90.8 (80-100) fl MCH 28.4 (26-34) pg MCHC 31.3 L (32-36) g/dl RDW 13.2 (11.5-14.5) % Plt Count 238 (150-375) k/mm3 MPV 9.6 (7.4-10.4) fl Immature Gran % (Auto) 0.5 (0-0.5) % Neut % (Auto) 70.6 (45.5-73.1) % Lymph % (Auto) 16.6 L (18.3-44.2) % [place] % (Auto) 9.8 H (2.6-8.5) % Eos % (Auto) 2.0 (0-4.4) % Baso % (Auto) 0.5 (0.2-1.2) % Lymph # (Auto) 0.68 L (0.9-3.2) K/mm3 [place] # (Auto) 0.4 (0.1-0.6) K/mm3 Eos # (Auto) 0.1 (0-0.3) K/mm3 Baso # (Auto) 0.0 (0.0-0.1) K/mm3 Abs Immat Gran (auto) 0.02 (0.00-0.031) K/mm3 Absolute Neuts (auto) 2.9 (1.3-6.7) K/mm3 Absolute Nucleated RBC 0.000 (0.0-0.012) K/mm3 Nucleated RBC % 0.0 (0.0-0.2) % Sodium 138 (137-145) mmol/L Potassium 4.0 (3.4-5.0) mmol/L Chloride 103 (98-107) mmol/L Carbon Dioxide 25 (22-30) mmol/L Anion Gap 10 (4-12) mmol/L BUN 23 H (7-17) mg/dL Creatinine 1.35 H (0.7-1.0) mg/dL Estim Creat Clear Calc 22 ml/min Estimated GFR 37 L (59 - ) Glucose 87 (65-110) mg/dL Calcium 9.0 (8.4-10.2) mg/dL Total Bilirubin 0.8 (0.2-1.3) mg/dL AST 40 H (14-36) U/L ALT 33 (6-35) U/L Alkaline Phosphatase 83 (38-126) U/L Total Protein 7.0 (6.3-8.2) g/dL Albumin 4.1 (3.5-5.1) g/dL Lipase 124 (23-300) U/L Urine Color Dark yellow (Yellow) Urine Appearance Clear (Clear) Urine pH 5.0 (5.0-9.0) Ur Specific [place] 1.018 (1.001-1.035) Urine Protein 1+ H (Negative) mg/dL Urine Glucose (UA) Negative (Negative) mg/dL Urine Ketones 1+ H (Negative) mg/dL Ur Blood (Man) Negative (Negative) Urine Nitrate Negative (Negative) Urine Bilirubin Negative (Negative) Urine Urobilinogen 0.2 (<2.0) mg/dL Add Ur Microanalysis Reviewed Leukocyte Esterase Rfl Negative (Negative) AMAYA/UL Urine RBC 0-2 (0-2) /hpf Urine WBC 0-5 (0-3) /hpf Ur Squamous Epith Cells None seen (Few) /hpf Urine Bacteria None seen /hpf Urine Casts 6-10 Imaging Data Radiologist's impression: Impressions Abdomen/Pelvis CT 08/18/24 11:30 IMPRESSION: 1. No acute intra-abdominal/pelvic process. 2. Small sliding-type hiatal hernia. Critical Care Time Critical Care Time Critical Care Time: No Discharge Plan Discharge Clinical Impression: Diarrhea Patient Disposition: Home, Self-Care Condition: Stable Instructions: Acute Diarrhea (ED), Full Liquid Diet (DC) Additional Instructions: Return if symptoms are worsening , call your family physician for appointment, call new order clerk for further evaluation, take Tylenol as as needed for aches and pain, continue home medications. Encourage fluid intake Get [id number] Imodium Patient Language: Grenadian Prescriptions: No Action omega 7-xee-xje-fish oil [Fish Oil] 60-90-500 mg capsule 1 cap PO DAILY vitamin B complex Tablet 1 tablet PO DAILY multivitamin Tablet 1 tablet PO DAILY Galzin 50 mg (zinc) capsule 50 mg PO DAILY alpha lipoic acid 200 mg capsule 600 mg PO DAILY gabapentin 300 mg capsule See Rx Instructions .ROUTE .COMPLEX Qty: 450 2RF Dose Instruction: TAKE 2 CAPSULES BY MOUTH IN THE MORNING AND 1 AT NOON AND 2 IN THE EVENING Rx Instructions: TAKE 2 CAPSULES BY MOUTH IN THE MORNING AND 1 AT NOON AND 2 IN THE EVENING omeprazole 20 mg capsule,delayed release(DR/EC) See Rx Instructions .ROUTE .COMPLEX Qty: 90 3RF Dose Instruction: Take 1 capsule by mouth once daily Rx Instructions: Take 1 capsule by mouth once daily ezetimibe 10 mg tablet See Rx Instructions .ROUTE .COMPLEX Qty: 90 2RF Dose Instruction: Take 1 tablet by mouth once daily Rx Instructions: Take 1 tablet by mouth once daily diphenoxylate-atropine [Lomotil] 2.5-0.025 mg tablet 1 tablet PO .q 4 hours PRN (Reason: diarrhea) Qty: 20 1RF Follow-up/Referrals: Ajit Krause MD [Physician] - 08/23/24 Joon Guo MD [Primary Care Provider] -
[2024-08-18 10:10] VITALS: BP 144/85; PULSE 110; RESP 30; O2SAT 94
[2024-08-18 10:20] LABS: Basophils Percent Auto 0.5 % (0.2-1.2); Eosinophils Absolute Auto 0.1 K/mm3 (0-0.3); Hematocrit 38.7 % (37.0-47.0); Hemoglobin 12.1 g/dL (12.0-15.0); Immature Granulocyte Absolute 0.02 K/mm3 (0.00-0.031); Immature Granulocyte Percent A 0.5 % (0-0.5); Lymphocytes Absolute Auto 0.68 K/mm3 (0.9-3.2); Lymphocytes Percent Auto 16.6 % (18.3-44.2); Mean Corpuscular HGB Conc 31.3 g/dl (32-36); Mean Corpuscular Hemoglobin 28.4 pg (26-34); Mean Corpuscular Volume 90.8 fl (80-100); Mean Platelet Volume 9.6 fl (7.4-10.4); Monocytes Absolute Auto 0.4 K/mm3 (0.1-0.6); Monocytes Percent Auto 9.8 % (2.6-8.5); Neutrophils Absolute Auto 2.9 K/mm3 (1.3-6.7); Neutrophils Percent Auto 70.6 % (45.5-73.1); Platelet Count Result 238 k/mm3 (150-375); Red Blood Count 4.26 M/mm3 (4.2-5.4); Red Cell Distribution Width 13.2 % (11.5-14.5); White Blood Count 4.1 K/mm3 (4.5-10.0)
--- OUTSIDE RECORDS SUMMARY | 2024-08-18 10:21 | XMS_ITS | Referral Summary ---
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 Gender Identity Not on file Sexual Orientation Not on file Last Filed Vital Signs Vital Sign Reading Time Taken Comments Blood Pressure 147/77 05/13/2021 1:09 PM OFFICE COPY SELECTOR Pulse 72 05/13/2021 1:09 PM OFFICE COPY SELECTOR Temperature 36.3 C (97.3 F) 05/15/2021 2:28 PM OFFICE COPY SELECTOR Respiratory Rate 16 05/13/2021 1:09 PM OFFICE COPY SELECTOR Oxygen Saturation 96% 05/13/2021 1:09 PM OFFICE COPY SELECTOR Inhaled Oxygen Concentration - - Weight 56.2 kg (124 lb) 05/13/2021 1:09 PM OFFICE COPY SELECTOR Height 157.5 cm (5' 2 ) 05/13/2021 1:09 PM OFFICE COPY SELECTOR Body Mass Index 22.68 05/13/2021 1:09 PM OFFICE COPY SELECTOR Plan of Treatment Not on file Insurance [facility] MEDICARE [facility] [place] [address] Care Teams Dispute Coordinator Relationship Specialty Start Date End Date Joon Guo MD [address] [place] [address] PCP - General Family Medicine 05/13/21
--- OUTSIDE RECORDS SUMMARY | 2024-08-18 10:21 | XMS_ITS | Clinical Summary ---
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 Gender Identity Not on file Sexual Orientation Not on file Obstetrics History Last Filed Vital Signs Vital Sign Reading Time Taken Comments Blood Pressure 147/77 05/13/2021 1:09 PM BOAT OUTBOARD ENGINE MECHANIC Pulse 72 05/13/2021 1:09 PM BOAT OUTBOARD ENGINE MECHANIC Temperature 36.3 C (97.3 F) 05/15/2021 2:28 PM BOAT OUTBOARD ENGINE MECHANIC Respiratory Rate 16 05/13/2021 1:09 PM BOAT OUTBOARD ENGINE MECHANIC Oxygen Saturation 96% 05/13/2021 1:09 PM BOAT OUTBOARD ENGINE MECHANIC Inhaled Oxygen Concentration - - Weight 56.2 kg (124 lb) 05/13/2021 1:09 PM BOAT OUTBOARD ENGINE MECHANIC Height 157.5 cm (5' 2 ) 05/13/2021 1:09 PM BOAT OUTBOARD ENGINE MECHANIC Body Mass Index 22.68 05/13/2021 1:09 PM BOAT OUTBOARD ENGINE MECHANIC Plan of Treatment Not on file Insurance MEDICARE [facility] MEDICARE [facility] [place] [address] Care Teams Block Layer Relationship Specialty Start Date End Date Joon Guo MD [address] [place] [address] PCP - General Family Medicine 05/13/21
--- OUTSIDE RECORDS SUMMARY | 2024-08-18 10:21 | XMS_ITS | Clinical Summary ---
Author Organization [facility] Address [address] [place] [address] Care Team Providers Care Camera Person Name Role Phone Joon Guo MD Primary Care Provider + Source Comments [facility],non-owned Affiliates and Associated Physician Practices is amultiple site organization consisting of ambulatory clinics and hospital sitesin [place], [place], [place] and [place]. This disclosure is being madepursuant to the Care Everywhere program and may not contain all information available regarding this patient. Last updated 18.[facility] Allergies No known active allergies Medications * [...] Documents on File Type Date Recorded Patient Shagger Expl anation Adv Directive/Living Will/POA 02/17/2012 1:15 PM * FULL RESUSCITATION (Latest Code Status on File) Date Activated Date Inactivated Comments 02/14/2012 12:31 PM 02/15/2012 10:47 AM Care Teams Camera Person Relationship Specialty Start Date End Date Joon Guo MD [address] [place] [id number] PCP - General 02/07/12
--- OUTSIDE RECORDS SUMMARY | 2024-08-18 10:21 | XMS_ITS | Continuity of Care Document ---
Author Organization [facility] Address [address] [place] [address] Phone Care Team Providers Care Sign Poster Name Role Phone Collin Holden Unavailable Unavailable [...] Diagnoses Date Provider Providers Copied on Encounter [facility], [id number] [place] [address] [address], [place], [place], [id number], [place] tel:[phone] [facility] No Information 0 Adina Polanco. [address] , [address], [place], [address], [place]. tel:[phone] [facility], [address], [place], [place], [id number], [place] tel:[phone] [facility] No Information Apr-2 8-201 0 Adina Polanco. [address] , [address], [place], [place], [facility], [place]. tel:[phone] [facility] Eye [facility], [address], [place], [place], [id number], [place] tel:[phone] [facility] No Information Aug-2 7-201 0 Adina Polanco. [address] , [address], [place], [place], [facility], [place]. tel:[phone] [facility] Eye [facility], [address], [place], [place], [id number], [place] tel:[phone] [facility] No Information Aug-1 9-201 0 Adina Polanoc. [address] , [address], [place], [place], [facility], [place]. tel:[phone] Referring Provider: Collin Payan, [address] [place], [place] [address], [place], [place], [facility]. tel:[phone] [facility], [address], [place], [place], [id number], [place] tel:[phone] [facility] No Information Mar-3 1-201 0 Adina Polanco. [facility] [facility] [address] , [address], [place], [place], [facility], [place]. tel:[phone] [facility] Eye [facility], [address], [place], [place], [id number], [place] tel:[phone] [facility] No Information Mar-3 0-201 0 Adina Polanco. [facility] [address] [facility] , [address], [place], [facility], [place]. tel:[phone] [facility] Eye [facility], [address], [place], [place], [id number], [place] tel:[phone] [facility] No Information 2-201 0 Adina Polanco. [address] [facility] , [address], [place], [address], [place]. tel:[phone] Referring Provider: Collin Payan, [address] [facility] [address], [place], [place], [facility]. tel:[phone] Office/outpat ient Visit, [facility] [address], [place], [place], [id number], [place] tel:[phone] [facility] No Information 4-200 9 Adina Polanco. [address] [facility] [address], [address], [place], [facility], [place]. tel:[phone] Office/outpat ient Visit, [facility], [address], [place], [place], [id number], [place] tel:[phone] [facility] No Information 0-200 9 Adina Polanco. [facility] [address], [address], [place], [place], [facility], [place]. tel:[phone] Family History Family Member Type Diagnosis Age At Onset No Information Payers Payer name Insurance type Covered alliance party ID Authoriza tishadi(s) [place] [id number] [facility] [id number] Social History Type Description Quantity Date Captured [...]
[2024-08-18 10:46] LABS: Add Urine Microscopic? YES; Appearance Urine Clear (Clear); Bacteria Urine None Seen /hpf; Bilirubin Urine Negative (Negative); Blood Urine Negative (Negative); Color Urine Dark Yellow (Yellow); Glucose Urine UA Negative (Negative); Ketones Urine 1+ mg/dL (Negative); Leukocyte Esterase Ur Negative LEU/UL (Negative); Need Manual Microscopic Reviewed; Nitrate Urine Negative (Negative); Protein Urine 1+ mg/dL (Negative); RBC Urine 0-2 /hpf (0-2); Specific Grav Ur 1.018 (1.001-1.035); Squamous Epithelial Cell Urine None Seen /hpf (Few); Urobilinogen Urine 0.2 mg/dL (<2.0); WBC Urine 0-5 /hpf (0-3)
[2024-08-18 10:47] LABS: Alanine Aminotransferase 33 U/L (6-35); Albumin Level 4.1 g/dL (3.5-5.1); Alkaline Phosphatase 83 U/L (38-126); Anion Gap 10 mmol/L (4-12); Aspartate Amino Transferase 40 U/L (14-36); Bilirubin,Total 0.8 mg/dL (0.2-1.3); Blood Urea Nitrogen 23 mg/dL (7-17); Carbon Dioxide 25 mmol/L (22-30); Chloride 103 mmol/L (98-107); Estimated CRCL calculation 22 ml/min; Estimated Glomerular Filt Rate 37; Glucose 87 mg/dL (65-110); Lipase 124 U/L (23-300); Sodium 138 mmol/L (137-145)
[2024-08-18] MEDS: SODIUM CHLORIDE 0.9% IV 1,000 ML 999 ML IV CONT (11:04)
[2024-08-18 11:08] VITALS: BP 143/67; PULSE 87; RESP 18; O2SAT 98
[2024-08-18] MEDS: ONDANSETRON INJ 4 MG/2 ML VIAL IV PUSH (11:08)
[2024-08-18 13:05] VITALS: BP 133/78; PULSE 90; RESP 20; O2SAT 98
== END 2024-08-18 13:10 | disposition home or self-care (01) ==
PROVIDERS: Family Medicine; Emergency Provider Emergency Medicine; PCP Family Medicine Adolescent Medicine
DX: R19.7 Diarrhea, unspecified (principal)
CPT/HCPCS: 36415; 74177; 80053; 81001; 83690; 85025; 96361; 96374; 99284; J2405; J7030; Q9967

== ENCOUNTER 2024-11-02 09:07 | Outpatient (CLI) | payer MEDICARE, OTHER, SELFPAY ==
--- NOTE | ~2024-11-02 | MR_ITS ---
MRI of the lumbar spine Clinical History: Back pain Technique: Axial T2-weighted images, and sagittal T1-weighted, T2-weighted, and T2 fat-sat images wer e acquired. Findings: No acute fracture seen. There is 4 mm anterolisthesis of L5 over S1. There is 2 mm retrolis thesis of L2 over L3, and of L3 over L4. No suspicious bone marrow signal abnormality seen. At L1-L2, there is moderate degenerative disc 9. There is mild disc bulge with moderate to advanced f acet arthropathy. There is mild to moderate central canal stenosis. Neural foramina are preserved. At L2-L3, there is severe degenerative disc narrowing. There is mild disc bulge and severe facet arth ropathy. There is mild central canal stenosis. Neural foramina are preserved. At L3-L4, there is severe degenerative disc narrowing. There is disc bulge and severe facet arthropat hy with mild to moderate central canal stenosis. There is mild right neural foraminal narrowing. Left neural foramen preserved. At L4-L5, there is severe degenerative disc narrowing. There is minimal disc bulge with moderate to a dvanced facet arthropathy. No central canal stenosis. There is moderate bilateral neural foraminal na rrowing. At L5-S1, there is severe degenerative disc narrowing. There is disc bulge and severe facet arthropat hy. There is minimal central canal stenosis. There is moderate bilateral neural foraminal narrowing. Paravertebral soft tissues are unremarkable. Impression: Advanced degenerative spondylosis throughout the lumbar spine, as detailed above. 4 mm anterolisthesis of L5 over S1. Reviewed, dictated and finalized at location . Impression: Advanced degenerative spondylosis throughout the lumbar spine, as detailed abov e. 4 mm anterolisthesis of L5 over S1.
== END 2024-11-02 09:08 | disposition home or self-care (01) ==
LOC: GOSHIMG 09:08
PROVIDERS: PCP Family Medicine Adolescent Medicine; Visit Provider Orthopaedic Surgery
DX: M47.816 Spondylosis without myelopathy or radiculopathy, lumbar region (principal)
CPT/HCPCS: 72148